=== PATIENT | female | born 1995 | race Caucasian/White ===

== ENCOUNTER 2016-03-16 01:13 | Emergency (ER) | payer OTHER, MEDICAID | END 2016-03-16 05:57 | disposition home or self-care (01) | DX: O03.9 Complete or unspecified spontaneous abortion without complication (principal); N83.201 Unspecified ovarian cyst, right side; Z87.11 Personal history of peptic ulcer disease; Z87.442 Personal history of urinary calculi ==

== ENCOUNTER 2016-03-19 13:43 | Outpatient (CLI) | payer OTHER, MEDICAID | END 2016-03-19 13:44 | disposition home or self-care (01) | DX: N91.1 Secondary amenorrhea (principal) ==

== ENCOUNTER 2016-04-06 08:00 | Outpatient (CLI) | payer OTHER, MEDICAID | END 2016-04-06 23:59 | disposition home or self-care (01) | DX: Z11.3 Encounter for screening for infections with a predominantly sexual mode of transmission (principal) ==

== ENCOUNTER 2016-04-13 21:06 | Emergency (ER) | payer OTHER, MEDICAID ==
[2016-04-13] MEDS ORDERED: MUPIROCIN 2% CREAM 30 GM TUBE TOP STA (22:23)
[2016-04-13] MEDS ORDERED: metroNIDAZOLE 250 MG TABLET PO STA (22:39)
[2016-04-13] MEDS ORDERED: metroNIDAZOLE 250 MG TABLET PO ONE (22:47)
[2016-04-13] MEDS ORDERED: MUPIROCIN 2% OINT 22 GM TUBE TOP ONE (22:47)
== END 2016-04-13 23:00 | disposition home or self-care (01) ==
DX: N76.0 Acute vaginitis (principal); B96.89 Other specified bacterial agents as the cause of diseases classified elsewhere; L08.9 Local infection of the skin and subcutaneous tissue, unspecified; R21 Rash and other nonspecific skin eruption; F17.200 Nicotine dependence, unspecified, uncomplicated
CPT/HCPCS: 36415; 81001; 81025; 86780; 87210; 87389; 87491; 87591; 99283; A9270

== ENCOUNTER 2016-04-21 | Outpatient (CLI) | payer OTHER, MEDICAID | END 2016-04-21 05:07 | disposition critical access hospital (66) | CPT/HCPCS: A0425; A0427 ==

== ENCOUNTER 2016-04-21 05:23 | Emergency (ER) | payer OTHER, MEDICAID | END 2016-04-21 07:47 | disposition home or self-care (01) | DX: I47.1 Supraventricular tachycardia (principal); F17.200 Nicotine dependence, unspecified, uncomplicated ==

== ENCOUNTER 2016-05-04 13:50 | Emergency (ER) | payer OTHER, MEDICAID | END 2016-05-04 16:25 | disposition home or self-care (01) | DX: O03.9 Complete or unspecified spontaneous abortion without complication (principal); Z87.891 Personal history of nicotine dependence ==

== ENCOUNTER 2016-05-10 15:08 | Outpatient (CLI) | payer OTHER | END 2016-05-10 15:09 | disposition home or self-care (01) | DX: N91.1 Secondary amenorrhea (principal) ==

== ENCOUNTER 2016-06-10 12:27 | Outpatient (CLI) | payer OTHER | END 2016-06-10 12:28 | disposition home or self-care (01) | DX: O26.21 Pregnancy care for patient with recurrent pregnancy loss, first trimester (principal) ==

== ENCOUNTER 2016-06-19 19:59 | Emergency (ER) | payer OTHER ==
[2016-06-19 20:21] LABS: BILIRUBIN,URINE NEGATIVE (NEGATIVE)
[2016-06-19 20:34] LABS: UA CHARGE (STRIP ONLY) YES; UR CULTURE IF IND NOT INDICATED
--- NOTE | 2016-06-19 21:05 | ED Physician Documentation ---
PD HPI FEMALE - Stated complaint Stated Complaint: FEMALE /5WK OB - Chief complaint Chief Complaint: Abd Pain - History obtained from History obtained from: Patient, Family - History of Present Illness Timing - onset: Today Timing - duration: Minutes (20) Timing - details: Abrupt onset Pain level max: 2 Pain level max: 0 Associated symptoms: Pelvic pain (cramping, throbbing). 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), Miscarriage(s) Recently seen: Not recently seen Review of Systems Constitutional: denies: Fever, Chills Nose: denies: Rhinorrhea / runny nose, Congestion Throat: denies: Sore throat Cardiac: denies: Chest pain / pressure Respiratory: denies: Cough GI: denies: Nausea, Vomiting, Diarrhea : denies: Dysuria, Discharge Skin: denies: Rash Musculoskeletal: denies: Neck pain, Back pain Neurologic: denies: Focal weakness, Numbness, Headache PD PAST MEDICAL HISTORY - Past Medical History Past Medical History: Yes Cardiovascular: Other GI: Ulcers HAND SIGN 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: Ovarian cysts, Miscarriage(s) : Kidney stones - Past Surgical History Past Surgical History: No General: Colonoscopy HEENT: Tonsil/Adenoidectomy - Present Medications Home Medications: Ambulatory Orders Medication Instructions Recorded Confirmed No Known Home Medications [No 06/19/16 06/19/16 Known Home Medications] - Allergies Allergies/Adverse Reactions: Allergies Allergy/AdvReac Type Severity Reaction Status Date / Time No Known Drug Allergies Allergy Verified 06/19/16 20:05 - Social History Does the pt smoke?: No Smoking Status: Former smoker Does the pt drink ETOH?: No Does the pt have substance abuse?: No - Immunizations Immunizations are current?: Yes - POLST Patient has POLST: No PD ED PE NORMAL - Vitals Vital signs reviewed: Yes - General General: Alert and oriented X 3, No acute distress, Well developed/nourished - HEENT HEENT: Moist mucous membranes - Neck Neck: Supple, no meningeal sign - Cardiac Cardiac: RRR, Strong equal pulses - Respiratory Respiratory: No respiratory distress, Clear bilaterally - Abdomen Abdomen: Soft, Non tender, Non distended - Female Female : Pt declined - Back Back: No CVA TTP, No spinal TTP - Derm Derm: Warm and dry - Neuro Neuro: Alert and oriented X 3 - Psych Psych: Normal mood, Normal affect Results - Vitals Vitals: Vital Signs - 24 hr 06/19/16 06/19/16 20:01 22:32 Temperature 37.1 C Heart Rate 72 84 Respiratory 20 18 Rate Blood Pressure 126/81 H 121/60 O2 Saturation 100 99 Oxygen O2 Source Room air - Labs Labs: Laboratory Tests 06/19/16 06/19/16 06/19/16 20:12 21:40 21:40 WBC 9.3 RBC 4.77 Hgb 13.6 Hct 41.3 MCV 86.5 MCH 28.6 MCHC 33.0 RDW 12.1 Plt Count 236 MPV 9.2 Neut # 5.6 Lymph # 2.9 Ray # 0.6 Eos # 0.1 Baso # 0.1 Absolute Nucleated RBC 0.00 Nucleated RBCs 0.0 Sodium 139 Potassium 4.0 Chloride 106 Carbon Dioxide 26 Anion Gap 7.0 BUN 11 Creatinine 0.7 Estimated GFR (MDRD) 106 Glucose 107 H Calcium 9.6 Total Bilirubin 0.4 AST 20 ALT 12 Alkaline Phosphatase 46 Total Protein 7.6 Albumin 5.1 Globulin 2.5 Albumin/Globulin Ratio 2.0 Lipase 37 HCG, Quant Urine Color YELLOW Urine Clarity CLEAR Urine pH 6.0 Ur Specific [place] 1.015 Urine Protein NEGATIVE Urine Glucose (UA) NEGATIVE Urine Ketones NEGATIVE Urine Occult Blood NEGATIVE Urine Nitrite NEGATIVE Urine Bilirubin NEGATIVE Urine Urobilinogen 0.2 (NORMAL) Ur Leukocyte Esterase NEGATIVE Ur Microscopic Review NOT INDICATED Urine Culture Comments NOT INDICATED 06/19/16 21:40 WBC RBC Hgb Hct MCV MCH MCHC RDW Plt Count MPV Neut # Lymph # Ray # Eos # Baso # Absolute Nucleated RBC Nucleated RBCs Sodium Potassium Chloride Carbon Dioxide Anion Gap BUN Creatinine Estimated GFR (MDRD) Glucose Calcium Total Bilirubin AST ALT Alkaline Phosphatase Total Protein Albumin Globulin Albumin/Globulin Ratio Lipase HCG, Quant 16149.00 Urine Color Urine Clarity Urine pH Ur Specific [place] Urine Protein Urine Glucose (UA) Urine Ketones Urine Occult Blood Urine Nitrite Urine Bilirubin Urine Urobilinogen Ur Leukocyte Esterase Ur Microscopic Review Urine Culture Comments - Rads (name of study) Pelvic US Radiology: Prelim report reviewed, EMP read contemporaneously, See rad report ( Findings are most consistent with a single intrauterine with an intrauterine gestational sac measuring 5 weeks 5 days gestational age. Embryo and yolk sac are not seen. No acute findings are seen. ) PD MEDICAL DECISION MAKING - ED course Complexity details: reviewed results, re-evaluated patient, considered differential, d/w patient ED course: Patient presents to the emergency department with throbbing pelvic pain earlier today. She appears to have an IUP. No evidence of ectopic . Asymptomatic in the emergency department. We will have her follow-up with her doctor for further evaluation and care. Patient counseled regarding signs and symptoms for which I believe and urgent re-evaluation would be necessary. Patient with good understanding of and agreement to plan and is comfortable going home at this time This document was made in part using voice recognition software. While efforts are made to proofread this document, sound alike and grammatical errors may occur. Departure - Departure Disposition: 01 Home, Self Care Clinical Impression: Intrauterine Condition: Good Instructions: ED Care, ED Preg Established Normal Sxs Follow-Up: your,doctor in 1 week [Other] Comments: Return if you worsen. Your gestational sac measures at 5 weeks and 5 days. We do not see an embryo and yolk sac at this time, but this is not necessarily abnormal early in . If your symptoms continue, your doctor could repeat an ultrasound in 1 week. Discharge Date/Time: 06/19/16 23:04
[2016-06-19 21:47] LABS: BASOPHILS # (AUTO) 0.1 10^3/uL (0.0-0.1); BASOPHILS % (AUTO) 0.7 %; EOSINOPHILS # (AUTO) 0.1 10^3/uL (0.0-0.7); EOSINOPHILS % (AUTO) 1.2 %; HCT - HEMATOCRIT 41.3 % (37.0-47.0); HGB - HEMOGLOBIN 13.6 g/dL (12.0-16.0); LYMPHOCYTES # (AUTO) 2.9 10^3/uL (1.5-3.5); LYMPHOCYTES % (AUTO) 31.5 %; MEAN CORPUSCULAR HEMOGLOBIN 28.6 pg (27.0-31.0); MEAN CORPUSCULAR VOLUME 86.5 fL (81.0-99.0); MEAN PLATELET VOLUME 9.2 fL (7.9-10.8); MONOCYTES # (AUTO) 0.6 10^3/uL (0.0-1.0); MONOCYTES % (AUTO) 6.6 %; NEUTROPHILS # (AUTO) 5.6 10^3/uL (1.5-6.6); RED BLOOD COUNT 4.77 10^6/uL (4.20-5.40); RED CELL DISTRIBUTION WIDTH 12.1 % (12.0-15.0); UNCORRECTED WHITE BLOOD COUNT 9.3 x10^3/uL; WHITE BLOOD COUNT 9.3 x10^3/uL (4.8-10.8)
[2016-06-19 22:01] LABS: BILIRUBIN,TOTAL 0.4 mg/dL (0.2-1.0); CALCIUM 9.6 mg/dL (8.5-10.3); CREATININE 0.7 mg/dL (0.4-1.0); TOTAL PROTEIN 7.6 g/dL (6.7-8.2)
[2016-06-19 22:32] VITALS: BP 121/60
--- NOTE | 2016-06-19 22:51 | Ultrasound Preliminary Report ---
Exam: US OB First Trimester IMPRESSION: 1. Findings are most consistent with a single intrauterine with an intrauterine gestational sac measuring 5 weeks 5 days gestational age. Embryo and yolk sac are not seen. No acute findings ar e seen. [facility] SITE ID: [id number]
--- NOTE | 2016-06-19 22:54 | Ultrasound Report ---
REVISED: THIS REPORT WAS ORIGINALLY SIGNED ON 06/19/2016 @ 2254 ORDERS LINKED ON 07/13/2016 EXAM: FIRST TRIMESTER OBSTETRIC ULTRASOUND (Less than 11 weeks) OB transvaginal EXAM DATE: 06/19/2016 10:23 PM. CLINICAL HISTORY: Pelvic pain. . HCG is 10,000 LMP: 05/11/2016, estimated gestational age is 5 weeks 5 days, OVI 02/15/2017. COMPARISONS: OB ultrasound 03/16/2016. TECHNIQUE: Transabdominal and transvaginal ultrasound examination with static image documentation. Findings: There is an intrauterine fluid collection at the fundus with probable double decidual sac sign, most consistent with an intrauterine gestational sac. The mean gestational sac diameter measures 9.3 mm which corresponds to estimated gestational age of 5 weeks 5 days, OVI 02/14/2017. Embryo and yolk sac are not seen. No joaquim-gestational bleed. Uterus is anteverted and appears unremarkable. Right ovary measures 2.7 x 3 x 3.4 cm with a volume of 14.14 cc, and appears within normal limits.. 1.5 cm corpus luteum suspected in the right ovary. Blood flow is seen in the right ovary. Left ovary measures 3.3 x 0.9 x 1.6 cm, volume of 2.6 cc. Appears within normal limits. Blood flow seen in the left ovary. No free fluid. IMPRESSION: 1. Findings are most consistent with a single intrauterine with an intrauterine gestational sac measuring 5 weeks 5 days gestational age. Embryo and yolk sac are not seen. No acute findings are seen. [facility] Referring Provider Line: [phone] SITE ID: [id number]
== END 2016-06-19 23:04 | disposition home or self-care (01) ==
LOC: ED 19:59
DX: R10.2 Pelvic and perineal pain (principal); O26.891 Other specified pregnancy related conditions, first trimester; Z3A.01 Less than 8 weeks gestation of pregnancy; Z87.42 Personal history of other diseases of the female genital tract; Z87.11 Personal history of peptic ulcer disease; Z87.891 Personal history of nicotine dependence
CPT/HCPCS: 36415; 76801; 76817; 80053; 81001; 81003; 83690; 84702; 85025; 87086; 99283; 99284

== ENCOUNTER 2016-06-21 11:33 | Emergency (ER) | payer OTHER | END 2016-06-21 15:05 | disposition home or self-care (01) | DX: O20.0 Threatened abortion (principal); Z3A.01 Less than 8 weeks gestation of pregnancy; Z87.11 Personal history of peptic ulcer disease; Z87.891 Personal history of nicotine dependence ==

== ENCOUNTER 2016-06-27 08:38 | Emergency (ER) | payer OTHER ==
[2016-06-27] MEDS ORDERED: ONDANSETRON ODT 4 MG TABLET TL STA (09:19)
[2016-06-27] MEDS ORDERED: ONDANSETRON ODT 4 MG TABLET ONE (09:24)
[2016-06-27] MEDS ORDERED: metroNIDAZOLE 250 MG TABLET PO STA (10:07)
[2016-06-27] MEDS ORDERED: metroNIDAZOLE 250 MG TABLET PO ONE (10:17)
== END 2016-06-27 10:24 | disposition home or self-care (01) ==
DX: O23.591 Infection of other part of genital tract in pregnancy, first trimester (principal); N76.0 Acute vaginitis; B96.89 Other specified bacterial agents as the cause of diseases classified elsewhere; Z3A.01 Less than 8 weeks gestation of pregnancy; R10.2 Pelvic and perineal pain; Z87.42 Personal history of other diseases of the female genital tract; Z87.11 Personal history of peptic ulcer disease; Z87.442 Personal history of urinary calculi; Z87.891 Personal history of nicotine dependence
CPT/HCPCS: 81003; 87210; 87491; 87591; 99283; A9270; Q0162

== ENCOUNTER 2016-06-30 02:57 | Emergency (ER) | payer OTHER ==
[2016-06-30] MEDS ORDERED: SODIUM CHLORIDE 0.9% 1,000 ML IV ONE ×2 (03:18→03:32)
[2016-06-30] MEDS ORDERED: METOCLOPRAMIDE 10 MG/2 ML VIAL IVP STA (03:19)
[2016-06-30] MEDS ORDERED: diphenhydrAMINE INJ 50 MG/ML VIAL IVP STA (03:19)
[2016-06-30] MEDS ORDERED: diphenhydrAMINE INJ 50 MG/ML VIAL ONE (03:35)
[2016-06-30] MEDS ORDERED: METOCLOPRAMIDE 10 MG/2 ML VIAL IVP ONE (03:35)
== END 2016-06-30 05:43 | disposition home or self-care (01) ==
DX: O20.0 Threatened abortion (principal); O21.0 Mild hyperemesis gravidarum; Z3A.01 Less than 8 weeks gestation of pregnancy; Z87.11 Personal history of peptic ulcer disease; Z87.442 Personal history of urinary calculi; Z87.42 Personal history of other diseases of the female genital tract

== ENCOUNTER 2016-07-01 17:38 | Outpatient (CLI) | payer OTHER | END 2016-07-01 17:39 | disposition critical access hospital (66) | DX: O99.89 Other specified diseases and conditions complicating pregnancy, childbirth and the puerperium (principal); R00.0 Tachycardia, unspecified; R06.02 Shortness of breath; R07.89 Other chest pain | CPT/HCPCS: A0425; A0427 ==

== ENCOUNTER 2016-07-01 17:55 | Emergency (ER) | payer OTHER ==
[2016-07-01] MEDS ORDERED: SODIUM CHLORIDE 0.9% 1,000 ML IV ONE (18:06)
[2016-07-01] MEDS ORDERED: METOCLOPRAMIDE 10 MG TABLET PO STA (18:49)
[2016-07-01] MEDS ORDERED: METOCLOPRAMIDE 10 MG TABLET ONE (18:49)
== END 2016-07-01 18:59 | disposition home or self-care (01) ==
DX: I47.1 Supraventricular tachycardia (principal); O26.891 Other specified pregnancy related conditions, first trimester; Z3A.01 Less than 8 weeks gestation of pregnancy; Z87.11 Personal history of peptic ulcer disease; Z87.42 Personal history of other diseases of the female genital tract; Z87.891 Personal history of nicotine dependence
CPT/HCPCS: 36415; 80048; 83735; 84100; 85025; 93005; 93010; 96360; 99284; A9270

== ENCOUNTER 2016-07-09 10:15 | Outpatient (CLI) | payer OTHER | END 2016-07-09 10:16 | disposition home or self-care (01) | DX: Z11.3 Encounter for screening for infections with a predominantly sexual mode of transmission (principal) ==

== ENCOUNTER 2016-08-06 10:59 | Outpatient (CLI) | payer OTHER ==
[2016-08-12 16:06] LABS: TEST RESULT REPORT (())
== END 2016-08-06 11:00 | disposition home or self-care (01) ==
LOC: LAB 10:59
PROVIDERS: ATTEND Obstetrics & Gynecology
DX: Z36 Encounter for antenatal screening of mother (principal)
CPT/HCPCS: 36415; 81599; 84163

== ENCOUNTER 2016-08-28 18:53 | Emergency (ER) | payer OTHER ==
--- NOTE | 2016-08-28 19:26 | ED Physician Documentation ---
PD HPI FEMALE - Stated complaint Stated Complaint: FEMALE /16WK OB - Chief complaint Chief Complaint: General - History obtained from History obtained from: Patient - History of Present Illness Timing - onset: How many days ago (several) Timing - duration: Days (several) Timing - details: Gradual onset Pain level max: 0 Pain level max: 0 Associated symptoms: Vaginal discharge (white). No: Fever, Abdominal pain, Back pain, Pelvic pain, Dysuria, Urinary frequency Contributing factors: (16 weeks EGA) Similar symptoms before: Has not had sx before Recently seen: Not recently seen Review of Systems Constitutional: denies: Fever, Chills GI: denies: Abdominal Pain, Nausea, Vomiting, Diarrhea : reports: Now EGA (16 weeks). 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: Ovarian cysts, Miscarriage(s) : Kidney stones - Past Surgical History Past Surgical History: No General: Colonoscopy HEENT: Tonsil/Adenoidectomy - Present Medications Home Medications: Ambulatory Orders Medication Instructions Recorded Confirmed Vit Calc,Iron,Folic 1 tab PO DAILY 06/27/16 08/28/16 [ Vitamins] Metronidazole [Flagyl] 500 mg PO BID #14 tablet 08/28/16 - Allergies Allergies/Adverse Reactions: Allergies Allergy/AdvReac Type Severity Reaction Status Date / Time morphine Allergy Hives Verified 08/28/16 19:00 - Social History Does the pt smoke?: No Smoking Status: Former smoker Does the pt drink ETOH?: No Does the pt have substance abuse?: No - Immunizations Immunizations are current?: Yes - POLST Patient has POLST: No PD ED PE NORMAL - Vitals Vital signs reviewed: Yes - General General: Alert and oriented X 3, No acute distress - Cardiac Cardiac: RRR - Respiratory Respiratory: No respiratory distress, Clear bilaterally - Abdomen Abdomen: Soft, Non tender, Non distended - Female 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 : 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), Other (copious white, thin discharge) - Derm Derm: Warm and dry - Neuro Neuro: Alert and oriented X 3 - Psych Psych: Normal mood, Normal affect Results - Vitals Vitals: Vital Signs - 24 hr 08/28/16 08/28/16 18:57 20:27 Temperature 37.1 C 36.7 C Heart Rate 116 H 86 Respiratory 15 15 Rate Blood Pressure 127/88 H 129/67 O2 Saturation 99 100 Oxygen O2 Source Room air - Labs Labs: Microbiology 08/28/16 19:35 GALDINO Preparation - Final Other - Vaginal 08/28/16 19:35 Wet Prep - Final Vaginal Laboratory Tests 08/28/16 19:35 Urine Color YELLOW Urine Clarity CLEAR Urine pH 6.0 Ur Specific [place] 1.015 Urine Protein NEGATIVE Urine Glucose (UA) NEGATIVE Urine Ketones NEGATIVE Urine Occult Blood NEGATIVE Urine Nitrite NEGATIVE Urine Bilirubin NEGATIVE Urine Urobilinogen 0.2 (NORMAL) Ur Leukocyte Esterase NEGATIVE Ur Microscopic Review NOT INDICATED Urine Culture Comments NOT INDICATED PD MEDICAL DECISION MAKING - ED course Complexity details: reviewed results, re-evaluated patient, considered differential, d/w patient, d/w family ED course: Patient is a 20-year-old female who is 16 weeks . Appears to have bacterial vaginitis. Will place on Flagyl. Bedside ultrasound reveals a single live intrauterine with a heart rate of 150 bpm. Biparietal diameter of approximately 16 weeks and 3 days. Images shown to the patient and family. Patient counseled regarding signs and symptoms for which I believe and urgent re-evaluation would be necessary. Patient with good understanding of and agreement to plan and is comfortable going home at this time This document was made in part using voice recognition software. While efforts are made to proofread this document, sound alike and grammatical errors may occur. Departure - Departure Disposition: 01 Home, Self Care Clinical Impression: Bacterial vaginitis Condition: Good Instructions: ED Vaginosis Bacterial Follow-Up: your,doctor in 1 week [Other] Prescriptions: Metronidazole [Flagyl] 500 mg PO BID #14 tablet Comments: Return if you worsen. Take all flagyl until gone. Discharge Date/Time: 08/28/16 20:27
[2016-08-28 19:41] LABS: BILIRUBIN,URINE NEGATIVE (NEGATIVE)
[2016-08-28 19:44] LABS: UA CHARGE (STRIP ONLY) YES; UR CULTURE IF IND NOT INDICATED
[2016-08-28] MEDS ORDERED: metroNIDAZOLE 250 MG TABLET PO STA (20:04)
[2016-08-28 20:28] VITALS: BP 129/67
== END 2016-08-28 20:27 | disposition home or self-care (01) ==
LOC: ED 18:53
DX: O23.592 Infection of other part of genital tract in pregnancy, second trimester (principal); N76.0 Acute vaginitis; B96.89 Other specified bacterial agents as the cause of diseases classified elsewhere; Z3A.16 16 weeks gestation of pregnancy
CPT/HCPCS: 81003; 87210; 87220; 99283; A9270; 81001; 87086

== ENCOUNTER 2016-09-03 15:30 | Outpatient (CLI) | payer OTHER | END 2016-09-03 15:31 | disposition home or self-care (01) | LOC: LAB 15:30 | PROVIDERS: ATTEND Obstetrics & Gynecology | DX: Z36 Encounter for antenatal screening of mother (principal) | CPT/HCPCS: 36415; 81511; 81599; 84163 ==

== ENCOUNTER 2016-09-05 11:14 | Outpatient (CLI) | payer OTHER | END 2016-09-05 23:59 | disposition EMS.NT | LOC: EMS 11:14 | PROVIDERS: ATTEND Surgery | DX: O99.89 Other specified diseases and conditions complicating pregnancy, childbirth and the puerperium (principal); R00.2 Palpitations ==

== ENCOUNTER 2016-09-05 15:15 | Emergency (ER) | payer OTHER ==
--- NOTE | 2016-09-05 16:38 | ED Physician Documentation ---
History of Present Illness - Stated complaint Stated Complaint: 18WEEKS /CHEST TIGHTNESS/DIZZY/SOA - Chief complaint Chief Complaint: General - History obtained from History obtained from: Patient - History of Present Illness Timing: Other (20-year-old woman, at 18 weeks. Started having SVTs in February while , miscarried, now having SVT again. Had one today that lasted a few minutes and responded to vagal maneuver. After the SVT she was feeling a little weak and dizzy and had some brief palpitations without return of rapid heart rate. 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: Ovarian cysts, Miscarriage(s) : Kidney stones - Past Surgical History Past Surgical History: No General: Colonoscopy HEENT: Tonsil/Adenoidectomy - Present Medications Home Medications: Ambulatory Orders Medication Instructions Recorded Confirmed Vit Calc,Iron,Folic 1 tab PO DAILY 06/27/16 08/28/16 [ Vitamins] Metronidazole [Flagyl] 500 mg PO BID #14 tablet 08/28/16 - Allergies Allergies/Adverse Reactions: Allergies Allergy/AdvReac Type Severity Reaction Status Date / Time morphine Allergy Hives Verified 08/28/16 19:00 - Social History Does the pt smoke?: No Smoking Status: Former smoker Does the pt drink ETOH?: No Does the pt have substance abuse?: No - Immunizations Immunizations are current?: Yes - POLST Patient has POLST: No PD ED PE NORMAL - Vitals Vital signs reviewed: Yes - General General: Alert and oriented X 3, No acute distress - Neck Neck: Supple, no meningeal sign, No bony TTP - Cardiac Cardiac: RRR, No murmur - Respiratory Respiratory: No respiratory distress, Clear bilaterally - Abdomen Abdomen: Non tender - Extremities Extremities: No edema, No calf tenderness / cord - Neuro Neuro: Alert and oriented X 3, Normal speech - Psych Psych: Normal mood, Normal affect Results - Vitals Vitals: Vital Signs - 24 hr 09/05/16 15:22 Temperature 36.8 C Heart Rate 99 Respiratory 18 Rate Blood Pressure 133/83 H O2 Saturation 100 Oxygen O2 Source Room air - EKG (time done) 1538 Rate: Rate (enter#) (88) Rhythm: NSR [place]: Normal Intervals: Normal RI QRS: Normal Ischemia: Normal ST segments Computer interpretation: Agree with computer PD MEDICAL DECISION MAKING - ED course ED course: She presents with what sounds like resolved PVCs after an SVT, no symptoms now and she has an unremarkable exam. Departure - Departure Disposition: 01 Home, Self Care Clinical Impression: SVT (supraventricular tachycardia), Intrauterine Condition: Good Record reviewed to determine appropriate education?: Yes Comments: Follow-up with a auto body repair technician when You get to [place]. Return if worse or if new symptoms develop. Your blood pressure was elevated today on check into the emergency department. This does not mean that you have hypertension, it is a common phenomenon to come to the emergency department and have elevated blood pressure. I recommend that she see her primary care physician within the week to have it rechecked when you are feeling better.
[2016-09-05 16:45] VITALS: BP 117/68
== END 2016-09-05 16:44 | disposition home or self-care (01) ==
LOC: ED 15:15
DX: O99.412 Diseases of the circulatory system complicating pregnancy, second trimester (principal); I47.1 Supraventricular tachycardia; Z3A.18 18 weeks gestation of pregnancy; R03.0 Elevated blood-pressure reading, without diagnosis of hypertension; Z87.11 Personal history of peptic ulcer disease; Z87.442 Personal history of urinary calculi; Z87.891 Personal history of nicotine dependence
CPT/HCPCS: 93005; 99283

== ENCOUNTER 2016-09-08 20:58 | Emergency (ER) | payer OTHER ==
--- NOTE | 2016-09-08 21:24 | ED Physician Documentation ---
PD HPI FEMALE - Stated complaint Stated Complaint: FEMALE /18WK OB - Chief complaint Chief Complaint: Abd Pain - History obtained from History obtained from: Patient, Family - History of Present Illness Timing - onset: Today Timing - duration: Hours (1) Timing - details: Abrupt onset Pain level max: 0 Pain level max: 0 Associated symptoms: Vaginal bleeding (spotting). 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 This is since resolved. 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: Ovarian cysts, Miscarriage(s), Other : Kidney stones Other Past Medical History: SVT, vaginosis - Past Surgical History Past Surgical History: Yes General: Colonoscopy HEENT: Tonsil/Adenoidectomy - Present Medications Home Medications: Ambulatory Orders Medication Instructions Recorded Confirmed Vit Calc,Iron,Folic 1 tab PO DAILY 06/27/16 09/08/16 [ Vitamins] - Allergies Allergies/Adverse Reactions: Allergies Allergy/AdvReac Type Severity Reaction Status Date / Time morphine Allergy Hives Verified 09/08/16 21:04 - Social History Does the pt smoke?: No Smoking Status: Former smoker Does the pt drink ETOH?: No Does the pt have substance abuse?: No - Immunizations Immunizations are current?: Yes - POLST Patient has POLST: No PD ED PE NORMAL - Vitals Vital signs reviewed: Yes - General General: Alert and oriented X 3, No acute distress - HEENT HEENT: Moist mucous membranes - Neck Neck: Supple, no meningeal sign - Cardiac Cardiac: RRR, Strong equal pulses - Respiratory Respiratory: No respiratory distress, Clear bilaterally - Abdomen Abdomen: Soft, Non tender, Non distended - Female Female : Pt declined - Back Back: No CVA TTP, No spinal TTP - Derm Derm: Warm and dry - Extremities Extremities: No edema - Neuro Neuro: Alert and oriented X 3 - Psych Psych: Normal mood, Normal affect Results - Vitals Vitals: Vital Signs - 24 hr 09/08/16 09/08/16 21:02 21:36 Temperature 36.3 C L Heart Rate 107 H 80 Respiratory 16 16 Rate Blood Pressure 140/71 H 127/66 O2 Saturation 100 97 Oxygen O2 Source Room air PD MEDICAL DECISION MAKING - ED course Complexity details: considered differential, d/w patient, d/w family ED course: Patient is a 20-year-old female who is 18 weeks , bedside ultrasound reveals a single live IUP with good movement. heart rate of 140 bpm. Images were shown to the patient and her significant other. The spotting is likely due to cervical trauma from intercourse. Spotting has since resolved. She is not having any cramping. We will have her follow-up with her OB for further evaluation and care. Patient counseled regarding signs and symptoms for which I believe and urgent re-evaluation would be necessary. Patient with good understanding of and agreement to plan and is comfortable going home at this time This document was made in part using voice recognition software. While efforts are made to proofread this document, sound alike and grammatical errors may occur. Departure - Departure Disposition: 01 Home, Self Care Clinical Impression: Spotting affecting Condition: Good Instructions: ED Preg Established Normal Sxs Follow-Up: your,doctor as scheduled [Other] Comments: Return if you worsen. It is not uncommon to have a small amount of spotting after intercourse while . Discharge Date/Time: 09/08/16 21:41
[2016-09-08 21:39] VITALS: BP 127/66
== END 2016-09-08 21:41 | disposition home or self-care (01) ==
LOC: ED 20:58
DX: O20.9 Hemorrhage in early pregnancy, unspecified (principal); Z3A.18 18 weeks gestation of pregnancy; Z87.11 Personal history of peptic ulcer disease; Z87.442 Personal history of urinary calculi; Z87.42 Personal history of other diseases of the female genital tract; Z87.891 Personal history of nicotine dependence
CPT/HCPCS: 99283